=== PATIENT | male | born 1975 | race Caucasian/White ===

== ENCOUNTER 2019-11-10 16:09 | Emergency (ER) | payer SELFPAY ==
[~2019-11-10] VITALS: Ht 172.7 cm; Wt 108.9 kg
[2019-11-10 16:47] VITALS: BP 165/96
--- NOTE | 2019-11-10 17:33 | NUR ---
PT ambulated to bed 2 at this time
--- NOTE | 2019-11-10 17:44 | NUR ---
DR NERI AT BEDSIDE EVALUATING PT.
[2019-11-10] MEDS ORDERED: LIDOCAINE MPF 2% 100 MG/5 ML VIAL INJ ONE (17:50)
--- NOTE | 2019-11-10 17:55 | NUR ---
XRAY AT BEDSIDE.
--- NOTE | 2019-11-10 18:04 | NUR ---
C/O LACERATION TO RT 1ST FINGER. PT REPORTS CUTTING THUMB ON DISTAL END WITH TABLE SAW. + ROM, COLOR WNL, BLEEDING CONTROLLED WITH GAUZE. Addendum: 11/10/19 at 1805 by MEDAD C/O LACERATION TO RT 1ST FINGER. PT REPORTS CUTTING THUMB ON DISTAL END WITH TABLE SAW. + ROM, COLOR WNL, BLEEDING CONTROLLED WITH GAUZE.PT AWAKE . AFIBRILE, NEGATIVE ACTIVE BLEEDING OF RT THUMB, NO LIMITATION ON ROM.GOOD CAPILLARY REFILL.
[2019-11-10] MEDS ORDERED: LIDOCAINE MPF 1% 5 ML ONE (18:40)
[2019-11-10 19:13] VITALS: BP 140/89
--- NOTE | 2019-11-10 19:14 | NUR ---
Patient discharged with v/s stable. Written and verbal after care instructions given and explained regarding laceration. Patient alert, oriented and verbalized understanding of instructions. Ambulatory with steady gait. All questions addressed prior to discharge. ID band removed. Patient advised to follow up with PMD. Rx of cepahelixin given. Patient educated on indication of medication including possible reaction and side effects. Opportunity to ask questions provided and answered.
--- NOTE | 2019-11-10 19:17 | NUR ---
give report to pablo lucio pt dc already need to cu id bracelet before dc pt.
== END 2019-11-10 19:14 | disposition home or self-care (01) ==
LOC: MED 16:09
DX: S61.011A Laceration without foreign body of right thumb without damage to nail, initial encounter (principal); X58.XXXA Exposure to other specified factors, initial encounter; Y93.89 Activity, other specified; Y92.89 Other specified places as the place of occurrence of the external cause; Y99.8 Other external cause status
CPT/HCPCS: 12001; 73140; 90471; 90715; 99283; J2001; Q0092

== ENCOUNTER 2020-06-28 16:05 | Emergency (ER) | payer MEDICAID ==
[~2020-06-28] VITALS: Ht 172.7 cm; Wt 132.9 kg
[2020-06-28 16:11] VITALS: BP 165/95
[2020-06-28] MEDS ORDERED: diazePAM 5 MG TAB PO ONE (17:00)
[2020-06-28 17:30] VITALS: BP 145/76
== END 2020-06-28 17:30 | disposition home or self-care (01) ==
LOC: MED 16:05
DX: H81.10 Benign paroxysmal vertigo, unspecified ear (principal)
CPT/HCPCS: 81002; 99283